=== PATIENT | female | born 1950 | race Caucasian/White ===

== ENCOUNTER → 2017-06-13 | Outpatient (CLI) | payer MEDICARE ==
--- NOTE | 2017-06-16 10:10 | MM ---
Reason for exam: screening (asymptomatic). Last mammogram was performed 1 year and 1 month ago. History: Patient is postmenopausal. Taking estrogen for 30 years beginning at age 34. Taking other hormone beginning at age 20. Physical Findings: A clinical breast exam by your physician is recommended on an annual basis and results should be correlated with mammographic findings. MG 3D Screening Mammo W/Cad Bilateral CC, MLO, and XCCL view(s) were taken. Prior study comparison: May 20, 2016, bilateral MG 3d screening mammo w/cad. July 29, 2014, bilateral MG screening mammo w CAD. There are scattered fibroglandular densities. There is no discrete abnormality. No significant changes when compared with prior studies. ASSESSMENT: Negative, BI-RAD 1 RECOMMENDATION: Routine screening mammogram of both breasts in 1 year.
== END | disposition home or self-care (01) ==
LOC: RADMAMWWP 13:29
PROVIDERS: ATTEND Family Medicine
DX: Z12.31 Encounter for screening mammogram for malignant neoplasm of breast (principal)
CPT/HCPCS: 77063; G0202

== ENCOUNTER → 2018-03-12 | Outpatient (CLI) | payer MEDICARE ==
--- NOTE | 2018-03-12 18:31 | CT ---
EXAMINATION TYPE: CT angio chest DATE OF EXAM: 03/12/2018 COMPARISON: NONE HISTORY: Shortness of breath and upper back pain. CT DLP: 440 mGycm. Automated Exposure Control for Dose Reduction was Utilized. CONTRAST: CTA scan of the thorax is performed with IV Contrast, patient injected with 61 mL of Isovue 370, pulm onary embolism protocol. MIP Images are created on CT scanner and reviewed. FINDINGS: LUNGS: The lungs are grossly clear, there is no concerning parenchymal mass or nodule identified. T here is no pleural effusion or pneumothorax seen. The tracheobronchial tree is patent. MEDIASTINUM: There is satisfactory enhancement of the pulmonary artery and its branches, there is no CT evidence for pulmonary embolism. There are prominent thoracic lymph nodes. For reference there is right peritracheal lymph node measuring 1.7 x 1.1 cm axial image 28. For reference there is anterior right hilar lymph node measuring 1.4 x 1.1 cm axial image 50. No cardiomegaly or pericardial effusio n is seen. Coronary artery desiccation is present which is noted marker for coronary artery disease. OTHER: There are surgical changes from gastric bypass surgery epigastric region. Cholecystectomy clip s are seen. Visualized spleen appears prominent. There is moderate multilevel spurring in the lower t horacic spine. IMPRESSION: No CT evidence for acute pulmonary embolism. No suspicious acute pulmonary process. Consi agatha follow-up for mildly enlarged thoracic lymph nodes and possible splenomegaly, neoplasm such as ly mphoma needs to be excluded.
== END | disposition home or self-care (01) ==
LOC: RADCTMAIN 17:08
PROVIDERS: ATTEND Family Medicine
DX: Z09 Encounter for follow-up examination after completed treatment for conditions other than malignant neoplasm (principal); Z86.711 Personal history of pulmonary embolism
CPT/HCPCS: 82565; 84520; 71275; 36415; Q9967

== ENCOUNTER → 2018-07-14 | Outpatient (CLI) | payer MEDICARE ==
--- NOTE | 2018-07-15 12:21 | MM ---
Reason for exam: screening (asymptomatic). Last mammogram was performed 1 year and 1 month ago. History: Patient is postmenopausal. Taking estrogen for 30 years beginning at age 34. Taking other hormone beginning at age 20. Physical Findings: A clinical breast exam by your physician is recommended on an annual basis and results should be correlated with mammographic findings. MG 3D Screening Mammo W/Cad Bilateral CC, MLO, and XCCL view(s) were taken. Prior study comparison: June 13, 2017, bilateral MG 3d screening mammo w/cad. May 20, 2016, bilateral MG 3d screening mammo w/cad. There are scattered fibroglandular densities. Stable benign calcifications. There is chronic nodularity in the left breast, stable. No significant changes when compared with prior studies. ASSESSMENT: Benign, BI-RAD 2 RECOMMENDATION: Routine screening mammogram of both breasts in 1 year.
== END | disposition home or self-care (01) ==
LOC: RADMAMWWP 15:55
PROVIDERS: ATTEND Family Medicine
DX: Z12.31 Encounter for screening mammogram for malignant neoplasm of breast (principal)
CPT/HCPCS: 77063; 77067

== ENCOUNTER → 2018-10-07 | Outpatient (CLI) | payer MEDICARE ==
[2018-10-07 07:37] LABS: Blood Urea Nitrogen 19 mg/dL (7-17)
--- NOTE | 2018-10-07 10:00 | CT ---
EXAMINATION TYPE: CT ChestAbdPelvis w con DATE OF EXAM: 10/07/2018 COMPARISON: 03/12/2018 HISTORY: 68-year-old female Lymphadenopathy, Splenomegaly TECHNIQUE: Contiguous axial scanning of the chest, abdomen, and pelvis performed with IV Contrast, pa tient injected with 100 mL of Isovue 300. Delayed images through the kidneys were obtained. Coronal/s agittal reconstructions performed. CT DLP: 2022 mGycm Automated exposure control for dose reduction was used. FINDINGS: Chest: Stable 1.2 cm nodularity subareolar left breast. Heart upper limits of normal in size without pericardial effusion. Coronary vessel calcifications are present and are remarkable for coronary artery disease. Aorta normal caliber with conventional arch vessel branching anatomy. Right paratracheal lymph node measures up to 1 cm, unchanged. Otherwise, no thoracic lymphadenopathy by CT size criteria. Mild dependent atelectasis. No consolidation or pleural effusion. Mild bronchial wall thickening sugg ests bronchitis or asthma. ABDOMEN: Liver measures 16.0 cm. Subcentimeter hypodensity left hep c lobe too small for accurate CT character ization, likely cyst. Portal venous system is patent. No biliary ductal dilatation. Gallbladder surgically absent. Adrenal glands, kidneys, and pancreas appear within normal limits. There is decreased size of the spleen now 12.9 cm versus 15.5 cm, previously. There is a small hiatal hernia with postsurgical changes of Rachel-en-Y gastric bypass. Scattered nonenlarged is a borderline sized mesenteric lymph nodes measuring up to 7 mm, refer to cor onal image 33 for example. No dilated small bowel, free fluid, or free air. Mild stool breathing. Oral contrast extends to the descending colon. Mild left colonic diverticular c hange. No pericolonic inflammatory change. Pelvis: Bladder urine distended. Uterus surgically absent. No adnexal abnormality, abnormal fluid collection in the pelvis, or pelvic lymphadenopathy seen. Bones: Mild degenerative changes at the hips. Degenerative changes SI joints and mid to lower lumbar spine. No osseous destructive process. IMPRESSION: 1. A borderline sized 1 cm right paratracheal lymph node is stable for 7 months. Spleen size is impro l[place] at 12.9 cm (versus 15.5 cm, previously). A few prominent scattered mesenteric lymph nodes measure up to 7 mm and are nonspecific. Given stable to improved findings elsewhere, likely reactive/post in flammatory. 2. Status post Rachel-en-Y gastric bypass. There is a small hiatal hernia.
== END | disposition home or self-care (01) ==
LOC: RADCTMAIN 06:56
PROVIDERS: ATTEND Internal Medicine Hematology & Oncology
DX: K44.9 Diaphragmatic hernia without obstruction or gangrene (principal); Z98.84 Bariatric surgery status; Z88.1 Allergy status to other antibiotic agents; Z88.2 Allergy status to sulfonamides; Z88.5 Allergy status to narcotic agent
CPT/HCPCS: 82565; 84520; 71260; 74177; 36415; Q9967